=== PATIENT | male | born 1950 | race Caucasian/White ===

== ENCOUNTER 2017-10-07 08:45 | Emergency (ER) | payer MEDICARE ==
[~2017-10-07] VITALS: Ht 185.4 cm; Wt 118.2 kg
[2017-10-07 08:49] VITALS: TEMP 98.5
[2017-10-07 09:35] LABS: BASO # 0.1 (0.0-0.2); BASO % 1.1 % (0.0-2.0); EOS # 0.4 (0.0-0.7); EOS % 5.4 % (0-4.0); GRAN % 54.2 % (42.2-75.2); HEMATOCRIT 47.1 % (42.0-52.0); HEMOGLOBIN 17.1 g/dl (13.5-18.0); LYMPH # 2.4 (1.2-3.4); LYMPH % 32.6 % (20.0-51.0); MEAN CELL VOLUME 86 fl (80.0-100.0); MEAN CORPUSCULAR HEMOGLOBIN 31 pg (27.0-31.0); MEAN CORPUSCULAR HGB CONC 36 g/dl (33.0-37.0); MEAN PLATELET VOLUME 9.1 fl (7.4-10.4); MONO # 0.5 (0.1-0.6); MONO % 6.6 % (1.7-9.3); PLATELET COUNT 224 K/mm3 (130-400); RED BLOOD COUNT 5.47 M/mm3 (4.20-5.60); REDCELL DISTRIBUTION WIDTH-CV 12.3 % (11.5-14.5)
[2017-10-07 09:42] LABS: BILIRUBIN,TOTAL 0.8 mg/dL (0.0-1.0); CREATININE, serum 1.07 mg/dL (0.66-1.25); TOTAL PROTEIN 7.7 gm/dL (6.4-8.2)
[2017-10-07 09:56] LABS: INR 1.3 (0.8-3.0); PROTHROMBIN TIME 15.2 SECONDS (9.7-12.8)
[2017-10-07 10:04] LABS: C-REACTIVE PROTEIN 0.7 mg/dL (0.0-0.9)
[2017-10-07 10:15] LABS: TROPONIN-I < 0.012 ng/mL (0.000-0.034)
[2017-10-07] MEDS ORDERED: FLOMAX 0.40.4 MG/CAP PO (10:17)
[2017-10-07] MEDS ORDERED: XARELTO20 MG PO (10:17)
[2017-10-07] MEDS ORDERED: PREDNISONE20 MG PO (10:22)
[2017-10-07] MEDS ORDERED: ZITHROMAX500 M2 PO (10:22)
[2017-10-07] MEDS ORDERED: TESSALON PERLE200 MG PO (10:22)
[2017-10-07 11:34] VITALS: BP 138/86; PULSE 58
== END 2017-10-07 11:35 | disposition home or self-care (01) ==
LOC: COL.ER 08:45
PROVIDERS: Emergency Medicine
DX: J40 Bronchitis, not specified as acute or chronic (principal); Z86.718 Personal history of other venous thrombosis and embolism
CPT/HCPCS: J1200; J1885; J2930; J7030